=== PATIENT | female | born 1970 | race Caucasian/White ===

== ENCOUNTER 2017-02-16 12:58 | Emergency (ER) | payer OTHER ==
[~2017-02-16] VITALS: Ht 160 cm; Wt 99.8 kg
--- NOTE | ~2017-02-16 | CR4 ---
[facility] A Service of [facility] & [facility] RADIOLOGY TEXT RESULTS PATIENT: FELY ROJAS LOCATION: [facility] : 74 UNIT #: [id number] AGE: [address]: Olivia Daily MD SEX: F ORDER DR: [id number] [facility] [address] [place], [place] [address] [id number] MR#: [id number] Acc #: [id number] NAME: FELY ROJAS : 1970 SEX: F STUDY DATE/TIME: 02/16/2017 17:20 UNIT: [facility] ROOM: STUDY DESCRIPTION: CR Abdomen Flat Upright or Dec Attending Physician: Olivia Daily M.D. Ordering Physician: Olivia Daily M.D. Primary Care Physician: No Primary Care Physician MEDICAL IMAGING REPORT This report is preliminary unless electronic signature is present EXAM Abdomen flat and upright 3 views 02/16/2017 HISTORY Right-sided abdominal pain with nausea and vomiting for 3 weeks. FINDINGS AP supine and upright examination of the abdomen shows a normal gas and fecal pattern distribution throughout large and small bowel without distended loops in either area. There is no indication of extraluminal air, visceromegaly, or soft tissue density mass. The renal definitions are fairly well demarcated and normal in shape and size. No abnormal intra-abdominal calcifications are present. IMPRESSION Normal abdomen. Dictated by... Himanshu Valero M.D. THIS IS AN ELECTRONICALLY VERIFIED REPORT Himanshu Valero M.D. at 02/19/2017 7:46 AM KRT/sylvain TD: 02/17/2017 08:03 JOB #: [id number] MEDICAL IMAGING REPORT Page 1 of 1 COPY
[~2017-02-16 12:58] MED LIST: (NONE)1 TAB; BACTRIM DS TABL1 TA1 PO; BENTYL20 MG PO; CALCIUM1 TAB.CHEW; CENTRUM COMPLE1 EACH PO; CIPRO PO; CLEOCIN HCL300 M1 PO; CYMBALTA PO; ESTROGEN; ESTROGEN-METHY1 EAC2 PO; FLEXERIL10 M1 PO; HCTZ PO; HYDROCODON-ACE1 EAC7 PO; LEVAQUIN750 M1 PO; LISINOPRIL PO; LISINOPRIL20 MG PO; M.V.I. ADULT10 ML; NEURONTIN PO; NEURONTIN300 MG PO; PANTOPRAZOLE SO40 MG PO; PERCOCET 10/3251 TAB; PHENERGAN SUPP25 MG PR; PHENERGAN25 M1 PO; PHENERGAN25 MG PO; PRILOSEC; PRILOSEC PO; PROAIR HFA8.5 GM; PROTONIX PO; PROTONIX20 MG PO; PROZAC PO; ROBAXIN500 MG PO; VOLTAREN75 MG PO; ZOFRAN ODT4 MG PO; ZOLOFT PO; ZOLOFT100 MG PO; ZYRTEC10 M2 PO
[2017-02-16 13:26] LABS: URINE SOURCE CLEAN CATCH
[2017-02-16 13:31] LABS: URINE APPEARANCE CLEAR; URINE BILIRUBIN NEG (NEG); URINE BLOOD NEG (NEG); URINE COLOR YELLOW; URINE GLUCOSE NEG (NEG); URINE KETONE NEG (NEG); URINE LEUKOCYTE ESTERASE 2+ (NEG); URINE NITRATE NEG (NEG); URINE PH 6.5 (5-8); URINE PROTEIN NEG (NEG); URINE SPECIFIC GRAVITY 1.028 (1.003-1.035); URINE UROBILINOGEN 0.2 MG/DL (NEG)
[2017-02-16 13:33] LABS: CULTURE INDICATED? YES; URINE BACTERIA AUWI NEG (NEGATIVE); URINE SQUAMOUS EPITHELIAL CELL NONE SEEN /[HPF]
[2017-02-16 13:39] LABS: BASOPHIL# 0.1 X10e3 (0-0.3); BASOPHIL% 0.7 % (0-2.5); EOSINOPHIL# 4.2 X10e3 (0-0.7); EOSINOPHIL% 28.4 % (0.0-7.0); HEMATOCRIT 43.4 % (35.0-45.0); HEMOGLOBIN 14.2 gm/dL (12.0-16.0); LYMPHOCYTE# 4.9 X10e3 (1.0-3.5); LYMPHOCYTE% 32.8 % (17.0-45.0); MEAN CELL VOLUME 86.4 FL (83-96); MEAN CORPUSCULAR HEMOGLOBIN 28.3 PG (28-34); MEAN CORPUSCULAR HGB CONC 32.8 g/dL (30-36); MEAN PLATELET VOLUME 7.9 FL (6.5-11.5); MONOCYTE# 0.8 X10e3 (0-1.0); MONOCYTE% 5.3 % (3.0-12.0); NEUTROPHIL# 4.9 X10e3 (1.5-7.1); NEUTROPHIL% 32.8 % (40-75); PLATELET COUNT 291 X10e3 (140-420); RED BLOOD COUNT 5.03 X10e (3.90-5.30); RED CELL DISTRIBUTION WIDTH 16.3 % (11.0-15.5)
[2017-02-16 13:40] LABS: DIFF IND YES
[2017-02-16 14:02] LABS: PLATELET ESTIMATE NORMAL (NORMAL)
[2017-02-16 14:09] LABS: ALBUMIN SERUM 3.6 g/dL (3.5-5.0); BILIRUBIN, DIRECT 0.1 mg/dL (0.0-0.2); BILIRUBIN,INDIRECT 0.1 mg/dL (0.0-0.9); BILIRUBIN,TOTAL 0.2 mg/dL (0.2-2.0); BUN/CREATININE RATIO 24.28; CALCIUM SERUM 8.7 mg/dL (8.4-10.2); CREATININE SERUM 0.7 mg/dL (0.6-1.4); GLOM FILT RATE Estimated 105.4 mL/min (>60); POTASSIUM 3.6 mmol/L (3.5-5.1); PROTEIN TOTAL SERUM 7.1 g/dL (6.0-8.3)
[2017-02-26] MEDS ORDERED: DULOXETINE HCL60 M1 PO (09:39)
[2017-02-26] MEDS ORDERED: K-TAB ER20 MEQ PO (09:40)
[2017-02-26] MEDS ORDERED: ZYRTEC10 M1 PO (09:40)
[2017-02-26] MEDS ORDERED: HYDROXYZINE HCL50 MG PO (09:41)
[2017-02-26] MEDS ORDERED: LASIX20 MG PO (09:41)
[2017-02-26] MEDS ORDERED: PROTONIX PO (09:41)
[2017-02-26] MEDS ORDERED: VALIUM2 MG PO (09:43)
[2017-02-26] MEDS ORDERED: GABAPENTIN800 MG PO (09:44)
[2017-02-26] MEDS ORDERED: FLEXERIL10 MG PO (09:44)
[2017-02-26] MEDS ORDERED: LORCET HD 10-31 EACH PO (09:47)
[2017-02-26] MEDS ORDERED: ZOFRAN (12:07)
== END 2017-02-16 18:48 | disposition home or self-care (01) ==
LOC: CED 12:58
PROVIDERS: Emergency Medicine
DX: R10.9 Unspecified abdominal pain (principal); Z90.49 Acquired absence of other specified parts of digestive tract; Z88.0 Allergy status to penicillin; Z88.1 Allergy status to other antibiotic agents; Z88.8 Allergy status to other drugs, medicaments and biological substances
CPT/HCPCS: 74020; 80048; 80076; 81003; 82150; 83690; 85025; 87086; 99284

== ENCOUNTER → 2017-02-18 | Outpatient (CLI) | payer OTHER ==
[~2017-02-18] MED LIST changes: +DULOXETINE HCL60 M1 PO; +FLEXERIL10 MG PO; +GABAPENTIN800 MG PO; +HYDROXYZINE HCL50 MG PO; +K-TAB ER20 MEQ PO; +LASIX20 MG PO; +LORCET HD 10-31 EACH PO; +VALIUM2 MG PO; +ZOFRAN; +ZYRTEC10 M1 PO
--- NOTE | ~2017-02-18 | CT7 ---
[facility] A Service of [facility] & [facility] RADIOLOGY TEXT RESULTS PATIENT: FELY ROJAS [facility] : 74 UNIT #: [id number] AGE: [address]: Chelo Gill APRN SEX: F ORDER DR: [id number] [facility] [address] [place], [place] [address] [id number] O MR#: [id number] Acc #: [id number] NAME: FELY ROJAS. : 1970 SEX: F STUDY DATE/TIME: 02/18/2017 15:12 UNIT: [facility] ROOM: STUDY DESCRIPTION: CT Abdomen Wo Cont Attending Physician: Chelo Gill A.P.R.N. Referring Physician: Chelo Gill A.P.R.N. Ordering Physician: Chelo Gill A.P.R.N. Primary Care Physician: Chelo Gill A.P.R.N. MEDICAL IMAGING REPORT This report is preliminary unless electronic signature is present EXAMINATION CT abdomen without contrast. DATE 02/18/2017 at 15:13. HISTORY 46-year-old female with right upper quadrant abdominal pain, nausea and vomiting and 20 pound weight loss in 2 months. Pain and vomiting for 6-8 weeks getting worse. Bloating. COMPARISON CT abdomen and pelvis without contrast, 06/15/2013. PROCEDURE 5 mm noncontrast axial images through the abdomen. Sagittal and coronal reformatted images were obtained. This CT exam was performed with one or more of the following radiation dose reduction techniques: automatic exposure control, adjustment of mA and/or kV according to patient size, and iterative reconstruction. FINDINGS The lung bases are free of consolidation. Spleen, adrenals and kidneys are within normal limits. Bilateral renal pelviectasis is present, similar to previous exam, without mohan hydronephrosis. The liver size is upper limits normal, 18.7 cm craniocaudally. The liver is markedly and diffusely steatotic. There is fatty infiltration of the pancreatic parenchyma. The appendix is normal. Unopacified bowel appears grossly nonthickened, nondilated and noninflamed. [facility]. [facility] A Service of [facility] & [facility] RADIOLOGY TEXT RESULTS PATIENT: FELY ROJAS LOCATION: [facility] : 74 UNIT #: [id number] AGE: [address]: Chelo Gill APRN SEX: F ORDER DR: No pathologic adenopathy or free fluid or mass lesion is evident. No acute osseous abnormalities are identified. IMPRESSION 1. No acute findings. Normal appendix. No urinary tract stone or hydronephrosis. 2. Hepatomegaly with diffuse hepatic steatosis. 3. Cholecystectomy. Dictated by... Christen Amato M.D. THIS IS AN ELECTRONICALLY VERIFIED REPORT Christen Amato M.D. at 02/19/2017 8:42 AM SHARIFA/yifan TD: 02/18/2017 23:17 JOB #: [id number] MEDICAL IMAGING REPORT Page 1 of 1 COPY
== END | disposition home or self-care (01) ==
LOC: CCAT 14:49
DX: R10.11 Right upper quadrant pain (principal); R11.0 Nausea; R63.4 Abnormal weight loss; R74.8 Abnormal levels of other serum enzymes; R16.0 Hepatomegaly, not elsewhere classified; K76.0 Fatty (change of) liver, not elsewhere classified; Z90.49 Acquired absence of other specified parts of digestive tract
CPT/HCPCS: 74150

== ENCOUNTER → 2017-02-26 | Day surgery (SDC) | payer OTHER ==
--- NOTE | ~2017-02-26 | OR ---
Unit #: [id number] #: [id number] Patient: FELY ROJAS [id number] [address] [place], [place] [address] [id number] O MR#: [id number] NAME: FELY ROJAS. ROOM: Date of Procedure: 02/26/2017 Admission Date: 02/26/2017 Surgeon: Tex Ferris M.D. : 1970 Attending Physician: Tex Ferris M.D. Primary Care Physician: Chelo Gill A.P.R.N. OPERATIVE REPORT PRIMARY CARE PHYSICIAN Chelo Gill, LANDSCAPE ARCHITECTURE PROFESSOR. PREOPERATIVE DIAGNOSES Epigastric pain and dyspepsia. PROCEDURES PERFORMED Upper gastrointestinal endoscopy and biopsy. POSTOPERATIVE DIAGNOSES 1. The patient had a polyp in the duodenal bulb. This is clearly having a benign appearance. 2. Mild prepyloric antral erosive gastritis with linear erosions in the antral area. A biopsy was obtained from the antrum for CLOtest. 3. Rest of the examination up to third part of duodenum was normal. RECOMMENDATIONS The patient will continue on b.i.d. Protonix and be followed up in the office in 6 to 8 weeks' time. SEDATION USED MAC. DESCRIPTION OF PROCEDURE Following detailed explanation of the potential risks and complications of an upper endoscopy, namely perforation, bleeding, complication related to sedation, the patient was brought to GI lab and laid in the left lateral decubitus position. Lubricated tip of the Olympus video upper endoscope was passed through the bite block into the proximal esophagus under direct vision. The entire esophageal mucosa was examined and appeared normal. Z-line was nicely demarcated, there being no esophagitis or hiatus hernia. The scope was then advanced into the gastric cavity and the latter was insufflated. Mucosa of the fundus, body, and antrum was examined. Moderate prepyloric antral gastritis was noted in the form of erythematous streaks in the antrum. Pylorus was intubated with visualization of the duodenal bulb. The latter was noted to have a polyp in the duodenal bulb with a benign appearance. The second and third part of duodenum were normal. Upon withdrawal and retroflexion; incisura, cardia, and greater curve was examined and biopsy was obtained from the antrum for CLOtest. The scope was then withdrawn in the distal esophagus. Entire esophageal mucosa was examined all the way up to pharynx. No additional findings were noted. The patient tolerated the procedure without any postprocedure complications. Unit #: [id number] #: [id number] Patient: FELY ROJAS Dictated by.Eusebio Willoughby/trudi TD: 02/26/2017 12:28 JOB #: [id number] OPERATIVE REPORT Page 1 of 1 X Tex Ferris MD PROCEDURE OPERATIVE NOTE
== END | disposition home or self-care (01) ==
LOC: COPS 08:55
DX: K31.7 Polyp of stomach and duodenum (principal); K29.70 Gastritis, unspecified, without bleeding; J45.909 Unspecified asthma, uncomplicated; K21.9 Gastro-esophageal reflux disease without esophagitis; M19.90 Unspecified osteoarthritis, unspecified site; Z87.01 Personal history of pneumonia (recurrent); Z90.710 Acquired absence of both cervix and uterus; Z90.49 Acquired absence of other specified parts of digestive tract; Z88.7 Allergy status to serum and vaccine; Z88.1 Allergy status to other antibiotic agents; Z88.0 Allergy status to penicillin
CPT/HCPCS: 87077